=== PATIENT | female | born 1985 | race African-American/Black ===

== ENCOUNTER 2021-06-02 15:11 | Emergency (ER) | payer MEDICAID ==
[2021-06-02] MEDS ORDERED: HYDROcod/ACETAM 5/325 MG TABLET PO STA (15:43)
--- NOTE | 2021-06-02 15:47 | ED Physician Documentation ---
PD HPI LOWER EXT INJURY - Stated complaint Stated Complaint: RIGHT KNEE INJURY - Chief complaint Chief Complaint: Trauma Ext - History obtained from History obtained from: Patient - History of Present Illness PD HPI LOW EXT INJURY LOCATION: Knee Type of injury: Fall Where injury occurred: Other Worsened by: Moving, Palpating - Additional information Additional information: Pt 36 yo F with Rt Knee pain. Reports fall yesterday while at [employer]. Denies Head trauma, LOC or blood thinners. Stats cannot place weight on knee or ambulate without assistance. Denies previous issues with same knee. Review of Systems Ten Systems: 10 systems reviewed and negative Constitutional: denies: Fever Cardiac: denies: Chest pain / pressure Respiratory: denies: Dyspnea GI: denies: Abdominal Pain : denies: Dysuria Musculoskeletal: denies: Neck pain Neurologic: denies: Generalized weakness PD PAST MEDICAL HISTORY - Past Medical History Past Medical History: No - Past Surgical History Past Surgical History: No - Present Medications Home Medications: Ambulatory Orders Medication Instructions Recorded Confirmed HYDROcod/ACETAM 5/325 [[place] 5/325] 1 tab PO Q6H PRN #10 tablet 06/02/21 Ibuprofen [Motrin] 800 mg PO Q8H PRN #30 tablet 06/02/21 - Allergies Allergies/Adverse Reactions: Allergies Allergy/AdvReac Type Severity Reaction Status Date / Time No Known Drug Allergies Allergy Verified 06/02/21 15:18 - Social History Does the pt smoke?: No Smoking Status: Never smoker Does the pt drink ETOH?: No Does the pt have substance abuse?: No PD ED PE NORMAL - General General: Alert and oriented X 3 - HEENT HEENT: Atraumatic - Neck Neck: Supple, no meningeal sign - Respiratory Respiratory: No: No respiratory distress - Female Female : Deferred - Rectal Rectal: Deferred - Neuro Neuro: Alert and oriented X 3, conservation of resources commissioner 2-12 intact PD ED PE EXPANDED - Extremities Extremities: Tenderness, Limited ROM, Swelling, Left knee. No: Laceration, Joint effusion, Ligament laxity Results - Vitals Vitals: Vital Signs - 24 hr 06/02/21 15:18 Temperature 36.7 C Heart Rate 71 Respiratory 18 Rate Blood Pressure 151/79 H O2 Saturation 100 Oxygen O2 Source Room air PD MEDICAL DECISION MAKING - ED course ED course: Pt 36 yo F presenting with right knee pain after fall at the [employer] yesterday. A febrile, hypodermically stable on arrival. No joint laxity, on exam. otherwise neuro-vascular intact. Given [place] in the ED for pain control. Xrays negative for acute fracture however did demonstrate large joint effusion with lipoarthrosis suggestive of occult fracture. Patient provided with knee immobilize/ crutches. Will discharge with medication for pain control. Will discharge with f/u instructions for local area orthopedics. Departure - Departure Disposition: Home, Self Care Clinical Impression: Knee injury Instructions: ED Knee Pain [facility] Follow-Up: [facility]opedic [facility] [Provider Group] Prescriptions: Ibuprofen [Motrin] 800 mg PO Q8H PRN #30 tablet PRN Reason: PAIN &/OR FEVER HYDROcod/ACETAM 5/325 [[place] 5/325] 1 tab PO Q6H PRN #10 tablet PRN Reason: pain Comments: Thank you for allowing us to care for you today at [facility]. Your knee xray did not show a clear or obvious fracture but it did show some signs concerning for occult or hidden fracture. I would like you to keep your knee immobilized and remain non weight bearing on your right leg until you can follow up with orthopedics.
--- NOTE | 2021-06-02 16:06 | XRAY Report ---
PROCEDURE: Knee 4 View RT INDICATIONS: knee injury TECHNIQUE: 4 views of the right knee were acquired. COMPARISON: None. FINDINGS: Bones: No displaced or depressed fractures. No dislocations. There is a mild lateral tilt of the pa tella. No suspicious bony lesions. Soft tissues: There is a moderate to large joint effusion with a lipohemarthrosis. No suspicious soft tissue calcifications. IMPRESSION: 1. No displaced or depressed fracture identified. 2. Moderate to large joint effusion with a lipohemarthrosis suggestive of a nondisplaced fracture. Reviewed by: Hector Albright MD on 06/02/2021 4:05 PM PDT Approved by: Hector Albright MD on 06/02/2021 4:05 PM PDT Station ID: [id number]
[2021-06-02 16:58] VITALS: BP 148/87
== END 2021-06-02 16:50 | disposition home or self-care (01) ==
LOC: MERGE 15:11 → ED 15:11
DX: S89.91XA Unspecified injury of right lower leg, initial encounter (principal); M25.461 Effusion, right knee; W19.XXXA Unspecified fall, initial encounter; Y93.44 Activity, trampolining; Y92.830 Public park as the place of occurrence of the external cause
CPT/HCPCS: 73564; 99283; 99284; A9270

== ENCOUNTER 2022-10-09 15:10 | Outpatient (CLI) | payer MEDICAID ==
[2022-10-09 18:02] LABS: BASOPHILS % (AUTO) 0.2 %; EOSINOPHILS # (AUTO) 0.2 10^3/uL (0.0-0.7); EOSINOPHILS % (AUTO) 1.7 %; HGB - HEMOGLOBIN 10.8 g/dL (12.0-16.0); LYMPHOCYTES # (AUTO) 2.3 10^3/uL (1.5-3.5); LYMPHOCYTES % (AUTO) 21.1 %; MEAN CORPUSCULAR HEMOGLOBIN 28.3 pg (27.0-31.0); MEAN CORPUSCULAR HGB CONC 32.7 g/dL (32.0-36.0); MEAN CORPUSCULAR VOLUME 86.4 fL (81.0-99.0); MEAN PLATELET VOLUME 10.5 fL (7.9-10.8); MONOCYTES # (AUTO) 0.6 10^3/uL (0.0-1.0); MONOCYTES % (AUTO) 5.7 %; NEUTROPHILS # (AUTO) 7.7 10^3/uL (1.5-6.6); NEUTROPHILS % (AUTO) 70.6 %; PLT - PLATELET COUNT 284 10^3/uL (130-450); RED BLOOD COUNT 3.82 10^6/uL (4.20-5.40); RED CELL DISTRIBUTION WIDTH 11.9 % (12.0-15.0)
[2022-10-09 21:20] LABS: ESTIMATED AVERAGE GLUCOSE 105 mg/dL (70-100); HEMOGLOBIN A1c% 5.3 % (4.27-6.07)
[2022-10-11 03:09] LABS: HIV SCREEN 4TH GENERATION Non Reactive (Non Reactive)
[2022-10-11 05:10] LABS: HCV AB Non Reactive (Non Reactive)
[2022-10-11 07:10] LABS: RPR Non Reactive (Non Reactive)
[2022-10-11 08:10] LABS: HBsAG SCREEN Negative (Negative)
[2022-10-11 11:11] LABS: VARICELLA-ZOSTER AB IGG <135 index (Immune >165)
== END 2022-10-09 15:11 | disposition home or self-care (01) ==
LOC: LAB.N 15:10
PROVIDERS: ATTEND Nurse Practitioner Obstetrics & Gynecology
DX: Z36.89 Encounter for other specified antenatal screening (principal)
CPT/HCPCS: 36415; 83036; 85025; 86592; 86762; 86787; 86803; 86850; 86900; 86901; 87340; 87389

== ENCOUNTER 2022-11-14 13:23 | Outpatient (CLI) | payer MEDICAID ==
--- NOTE | 2022-11-14 15:54 | Ultrasound Report ---
PROCEDURE: OB Detailed Eval INDICATIONS: SUPERVISION OF OUTSIDE/PRIOR DATING DATA: Last menstrual period (LMP): 06/24/2022. LMP-based estimated date of delivery (JO): 03/31/2023. First dating scan (date and location): 10/01/2022. Estimated date of delivery (JO) from first dating scan: 04/05/2023. The below data below was generated using the clinical JO of 03/31/2023 TECHNIQUE: Real-time scanning was performed of the fetus, with image documentation and biometric measurements. Endovaginal scanning: None COMPARISON: None. FINDINGS: General: A single living intrauterine gestation is present. Presentation: Breech Placenta: Placental position is fundal, without previa. Amniotic fluid index: 14.3 cm, normal for gestational age. heart rate: 136 beats per minute. Maternal cervical canal: 3.1 cm long; normal length is 2.5 cm or more. biometrics: Biparietal diameter: 4.3 cm, 20 weeks 3 days Head circumference: 18.1 cm, 20 weeks 4 days Abdominal circumference: 16.0 cm, 21 weeks 1 day Femur length: 3.1 cm, 19 weeks 5 days Estimated gestational age from initial scan: 20 weeks 3 days Composite gestational age from present scan: 20 weeks 3 days Estimated weight and percentile: 354 g, 46th percentile Measurement variability in biometric dating: +/- 10 days from 12-20 weeks gestation, +/- 2 weeks from 20-30 weeks gestation, +/- 3 weeks at 30 weeks gestation or later. Anatomic survey: Neuro: Ventricles are normal at less than 10 mm. Cisterna magna is normal at 3-11 mm. Cerebellum i s normal in size and morphology. Nuchal skin fold: Normal at less than 6 mm between 14 and 20 weeks gestational age. Face: Nose and lips, facial profile are normal. Spine: No evidence for spina bifida. Heart: 4-chambered heart is present, with normal ventricular outflow tracts. Diaphragm: Diaphragm is intact. Stomach: Left-sided stomach is present. Kidneys: No hydronephrosis. Normal is less than 5 mm in 2nd trimester, less than 7 mm in 3rd trimester. Cord: 3 vessel cord has orthotopic insertion. Bladder: Normal in size. Extremities: All 4 extremities are visualized. IMPRESSION: Single living intrauterine at 20 weeks 3 days, JO of 03/31/2023. Normal anatomy survey. Reviewed by: Jamar Díaz on 11/14/2022 3:53 PM PDT Approved by: Jamar Díaz on 11/14/2022 3:53 PM PDT Station ID: [id number]
== END 2022-11-14 13:24 | disposition home or self-care (01) ==
LOC: DI 13:23
PROVIDERS: ATTEND Nurse Practitioner Obstetrics & Gynecology
DX: Z34.02 Encounter for supervision of normal first pregnancy, second trimester (principal); Z36.89 Encounter for other specified antenatal screening

== ENCOUNTER 2023-04-11 08:04 | Outpatient (CLI) | payer MEDICAID ==
[2023-04-11 08:26] VITALS: BP 119/77; O2SAT 100
--- NOTE | 2023-04-11 10:43 | Ultrasound Report ---
PROCEDURE: OB Bio w/Non Stress INDICATIONS: post dates OUTSIDE/PRIOR DATING DATA: Last menstrual period (LMP): 06/24/2022. LMP-based estimated date of delivery (JO): 03/31/2023. First dating scan (date and location): 10/01/2022. Estimated date of delivery (JO) from first dating scan: 04/05/2023. The below data below was generated using the ultrasound JO of 04/05/2023 TECHNIQUE: Real-time scanning was performed of the fetus, with image documentation "and biometric me asurements". Biophysical profile was also obtained. Endovaginal scanning: Not performed COMPARISON: 11/14/2022 FINDINGS: General: A single living intrauterine gestation is present. Presentation: Vertex Placenta: Placental position is anterior, without previa. Amniotic fluid index: 12.2 cm, normal for gestational age. heart rate: 144 beats per minute. Biophysical profile: Tone: 2 points. Movement: 2 points. Respiration: 2 points. Largest pocket of fluid: 2 points. Umbilical artery Doppler: Normal appearance. Nuchal cord. IMPRESSION: Single living intrauterine at 40 weeks 6 days, JO of 04/05/2023. BPP 8 of 8. Normal umbilical artery waveform. Nuchal cord. Reviewed by: Jamar Díaz on 04/11/2023 10:42 AM PDT Approved by: Jamar Díaz on 04/11/2023 10:42 AM PDT Station ID: [id number]
--- NOTE | 2023-04-13 08:08 | PROCEDURE REPORT ---
- HPI Diagnosis/Indication for NST: Other Current EDU 03/31/23 Gestation 41 Weeks and 4 Days 6 Para 5 Vital Signs Temperature 36.7 C 04/11/23 08:17 Heart Rate 69 04/11/23 08:17 Respiratory Rate 16 04/11/23 08:17 Blood Pressure 119/77 04/11/23 08:17 O2 Saturation 100 04/11/23 08:17 Temperature 36.7 C 04/11/23 08:17 Heart Rate 69 04/11/23 08:17 Respiratory Rate 16 04/11/23 08:17 Blood Pressure 119/77 04/11/23 08:17 O2 Saturation 100 04/11/23 08:17 If not protocol: Oxygen Flow, liters/minute - NST Procedure NST Procedure Start Date 04/11/23 Start Time 09:06 Stop Time 09:32 Vibroacoustic Stimulation Used No Patient States Movement Yes - Results and Plan Plan: NST reactive. FHR baseline 140s, moderate variability, + accels, no decels Contractions palpate mild, occasionally with soft resting tone
== END 2023-04-11 10:30 | disposition home or self-care (01) ==
LOC: WFO 08:04 → FBP 08:05 → WFO 10:30
PROVIDERS: ATTEND Nurse Practitioner Obstetrics & Gynecology
DX: O48.0 Post-term pregnancy (principal); Z3A.41 41 weeks gestation of pregnancy
CPT/HCPCS: 59025

== ENCOUNTER 2023-04-13 08:13 | Inpatient (IN) | payer MEDICAID ==
[2023-04-13] MEDS ORDERED: TRANEXAMIC ACID IN NACL 1,000 MG/100 ML BAG IV PRN (08:23)
[2023-04-13] MEDS ORDERED: miSOPROStoL 200 MCG TABLET BC PRN (08:23)
[2023-04-13] MEDS ORDERED: OXYTOCIN/SODIUM CHLORIDE 500 ML IV PRN (08:23)
[2023-04-13] MEDS ORDERED: METHYLERGONOVINE 0.2 MG/ML VIAL IM PRN (08:23)
[2023-04-13] MEDS ORDERED: SODIUM CHLORIDE FLUSH 0.9% 10 ML SYRINGE IVP PRN (08:23)
[2023-04-13] MEDS ORDERED: ONDANSETRON 4 MG/2 ML VIAL IVP PRN ×2 (08:23→17:52)
[2023-04-13] MEDS ORDERED: lidocaine 1% 20 ML MDV ID PRN (08:23)
[2023-04-13] MEDS ORDERED: OXYTOCIN 10 UNIT/ML VIAL IM PRN (08:23)
[2023-04-13] MEDS ORDERED: CARBOPROST TROMETHAMINE 250 MCG/ML AMP IM PRN (08:23)
--- NOTE | 2023-04-13 08:29 | HISTORY & PHYSICAL EXAMINATION ---
Admit History - Visit Reason Visit Reason: Other - : 6 Parity: 5 Premature: 0 Ectopic: 0 : 0 Care: positive: [facility] Risk/History: positive: Other Complications This : positive: Other Smoking Status: Never smoker - Mother's Labs Mother's Blood Type: positive: O Mother's RH: positive: Positive GBS: positive: Group B Step Negative Rubella Status: positive: Immune - HPI Diagnosis/Indication for NST: Other - NST Procedure NST Procedure Start Time 09:06 Stop Time 09:32 - Results and Plan Findings/Impression: NST reactive. FHR baseline 150, moderate variability, + accels, no decels Contractions palpate mild occasionally with soft resting tone Meds/Allgy - Home Medications Home Medications: Ambulatory Orders Medication Instructions Recorded Confirmed HYDROcod/ACETAM 5/325 [[employer] 5/325] 1 tab PO Q6H PRN #10 tablet 06/02/21 Ibuprofen [Motrin] 800 mg PO Q8H PRN #30 tablet 06/02/21 - Allergies Allergies/Adverse Reactions: Allergies Allergy/AdvReac Type Severity Reaction Status Date / Time No Known Drug Allergies Allergy Verified 06/06/21 11:25 Review of Systems - Constitutional Constitutional: denies: Fatigue, Fever, Chills - Eyes Eyes: denies: Blurred vision, Spots in vision, Dipolpia - Cardiovascular Cariovascular: denies: Irregular heart rate, Palpitations, Chest pain, Edema - Respiratory Respiratory: denies: Cough, Wheezing, SOB at rest - Gastrointestinal Gastrointestinal: denies: Constipation, Diarrhea, Nausea, Vomiting - Genitourinary Genitourinary: denies: Dysuria - Integumentary Integumentary: denies: Rash, Pruritis - Neurological Neurological: denies: Headache - Psychiatric Psychiatric: denies: Depression, Anxiety - Hematologic/Lymphatic Hematologic/Lymphatic: denies: Anemia Physical - Abdominal Exam Contraction Frequency (min/apart): occasional Contraction Intensity: positive: Mild Uterine Resting Tone: positive: Soft - Monitoring Heart Rate Baseline: 150 Strip Review: positive: Category I - Presentation Presentation: positive: Vertex - Vaginal Exam Membranes: positive: Membranes intact - Speculum Exam Speculum Exam Performed: positive: No Plan for Labor - Plan For Labor I expect patient to be DC'd or transferred within 96 hours.: Yes Plan for Labor: HPI: This 38yo @ 41.6wks gestation by LMP c/w 14wk U/S who presents to [facility] for medical induction of labor secondary to postdates and advanced maternal age. She has been a patient of [facility] for the duration of her which has remained complicated only by her ad vanced maternal age. She has received testing starting at 37wks gestation and it has remained reassuring. She is supported by her Mono today. Dating criteria: LMP 06/24/2022 Initial U/S @ 14wks c/w LMP dating Serial exams - agree undercover cop History: Term NSVB x 5. SAB x0. Last pap 2018-WNL, no hx abnormal. Denies history of gonorrhea, chlamydia, genital herpes, oral herpes or any other STI. Sexual partner does NOT have HSV (oral or genital). Medical Hx: no significant Surgical Hx:skin craft on hand at age 8 Social Hx: Sexual behavior: Monogamous with male partner. Stopped drinking alcohol due to . Denies current use of tobacco, marijuana or other recreational drugs. Reports that she is safe in current relationship. Family Hx: Denies family history of congenital anomalies, Cystic Fibrosis or chromosomal abnormalities. Allergies: NKDA Medications: PNV course: O positive, antibody negative Rubella immune; varicella non-immune HIV neg, RPR non-reactive Hep B Neg, Hep C neg Genetic screening - declined Initial U/S @ 14wks gestation c/w LMP dating. FAS WNL. Placenta is fundal without previa. Size c/w dating (EFW 46%tile). 3VC. COVID-19 vaccine - declined Influenza vaccine- declined Tdap - declined Glucola - declined GBS negative Physical exam: Normocephalic, atraumatic Heart RRR w/o M/G/R Lungs CTAB Abdomen gravid, soft, nontender EFW 3600g FHR baseline 150, moderate variability, + accels, no decels Contractions palpate mild occasionally with soft resting tone SVE 5/80/-2, midposition, soft. Vertex. AROM occurred at 0857 for a moderate amount of light meconium stained amniotic fluid Bilateral LE's no edema Mood is good. Assessment: 38yo @ 41.6wks gestation by LMP c/w 14wk U/S Advanced maternal age Postdates GBS negative FHR Category I Plan: Admit to [facility] for medical induction of labor. Initiate pitocin PRN in 6 hours for augmentation of labor. Intermittent heart rate auscultation. Jacuzzi PRN. Nitrous oxide PRN. Epidural per maternal request. Anticipate .
[2023-04-13 08:50] LABS: BASOPHILS # (AUTO) 0.1 10^3/uL (0.0-0.1); BASOPHILS % (AUTO) 0.4 %; EOSINOPHILS # (AUTO) 0.1 10^3/uL (0.0-0.7); EOSINOPHILS % (AUTO) 1.1 %; HCT - HEMATOCRIT 36.2 % (37.0-47.0); HGB - HEMOGLOBIN 11.9 g/dL (12.0-16.0); LYMPHOCYTES # (AUTO) 1.9 10^3/uL (1.5-3.5); LYMPHOCYTES % (AUTO) 17.3 %; MEAN CORPUSCULAR HEMOGLOBIN 27.9 pg (27.0-31.0); MEAN CORPUSCULAR HGB CONC 32.9 g/dL (32.0-36.0); MEAN CORPUSCULAR VOLUME 84.8 fL (81.0-99.0); MONOCYTES # (AUTO) 0.4 10^3/uL (0.0-1.0); MONOCYTES % (AUTO) 3.2 %; NEUTROPHILS # (AUTO) 8.7 10^3/uL (1.5-6.6); NEUTROPHILS % (AUTO) 77.2 %; PLT - PLATELET COUNT 254 10^3/uL (130-450); RED BLOOD COUNT 4.27 10^6/uL (4.20-5.40); RED CELL DISTRIBUTION WIDTH 13.2 % (12.0-15.0); WHITE BLOOD COUNT 11.2 x10^3/uL (4.8-10.8)
[2023-04-13] MEDS ORDERED: LACTATED RINGERS 1,000 ML IV SCH (09:00)
[2023-04-13] MEDS: SODIUM CHLORIDE FLUSH 0.9% 10 ML SYRINGE IVP SCH ×2 (15:48→18:31)
--- NOTE | 2023-04-13 15:49 | PROVIDER PROGRESS NOTE ---
Labor Progress Note - Uterine Monitoring Uterine Monitoring Mode: positive: External toco Contraction Frequency (min/apart): 7-9 Contraction Intensity: positive: Mild Uterine Resting Tone: positive: Soft - Monitoring Monitor Mode: positive: External ultrasound Heart Rate Baseline: 140 Heart Rate Variability: positive: Moderate (6-25 bmp) Accelerations: positive: Present, 15x15 Decelerations: positive: Variable, Intermittent (<50% x20 min) Strip Review: positive: Category II - Vaginal Exam Dilation (in cm): 5 Effacement (%): 80 Station: -2 Cervical Position: Midposition - Labor Progress Note Labor Progress Note/Additional Text: S: Was pumping and feeling some contractions when she was seated but states when she is up moving around or bouncing on the ball she feels that her contraction go away. Her Mono is supportive at the bedside. O: FHR baseline 140s, moderate variability, + accels, occasional variable deceleration with contractions that pt appreciates as strong Contractions palpate mild every 7-9 minutes with soft resting tone SVE unchanged from last exam (/-2) and vertex A: 38yo @ 41.6wks gestation by LMP c/w 14wk U/S FHR Category II - overall reassuring GBS neg Advanced maternal age P: Initiate pitocin for augmentation of labor with titration per protocol. Continuous monitoring. Jacuzzi PRN. Nitrous oxide PRN. Epidural per maternal request. Anticipate .
[2023-04-13] MEDS ORDERED: OXYTOCIN/SODIUM CHLORIDE 500 ML IV SCH (16:00)
[2023-04-13] MEDS ORDERED: LACTATED RINGERS 1,000 ML IV ONE (16:27)
[2023-04-13] MEDS ORDERED: ROPIVACAINE 0.2% 200 MG/100 ML BAG EP ONE (17:10)
--- NOTE | 2023-04-13 17:48 | PROVIDER PROGRESS NOTE ---
Labor Progress Note - Uterine Monitoring Uterine Monitoring Mode: positive: External toco Contraction Frequency (min/apart): 3-4 Contraction Intensity: positive: Strong Uterine Resting Tone: positive: Soft - Monitoring Monitor Mode: positive: External ultrasound Heart Rate Baseline: 140 Heart Rate Variability: positive: Moderate (6-25 bmp) Accelerations: positive: Absent Decelerations: positive: Variable, Recurrent (>50% x20 min) Strip Review: positive: Category II - Labor Progress Note Labor Progress Note/Additional Text: S: Feeling more comfortable now with her epidural. Her mood is good and her is feeling significantly relieved now that she is comfortable with her epidural. O: FHR baseline 150s, moderate variability, no accels, intermittent variable decelerations - overall reassuring contractions palpate strong every 3-4 minutes with soft resting tone SVE deferred until patient completely comfortable with her epidural. A: 38yo @ 41.6wks gestation Postdates Advanced maternal age FHR Category II GBS negative P: Continuous monitoring. Restart pitocin following next SVE with titration per protocol. Maintain epidural for pain management. Rotate on peanut ball q 30 minutes once comfortable with epidural. Practical Nursing Instructor notified of light meconium stained amniotic fluid. Anticipate .
[2023-04-13] MEDS ORDERED: diphenhydrAMINE INJ 50 MG/ML VIAL IVP PRN (17:52)
[2023-04-13] MEDS ORDERED: NALBUPHINE 10 MG/ML AMP IVP PRN (17:52)
[2023-04-13] MEDS ORDERED: ePHEDrine 50 MG/ML VIAL IVP PRN (17:52)
[2023-04-13] MEDS ORDERED: NALOXONE 0.4 MG/ML VIAL IVP PRN (17:52)
[2023-04-13] MEDS ORDERED: ROPIVACAINE 0.2% 200 MG/100 ML BAG EP PRN (17:52)
[2023-04-13] MEDS ORDERED: METOCLOPRAMIDE 10 MG/2 ML VIAL IVP PRN (17:52)
--- NOTE | 2023-04-13 18:01 | ANESTHESIA ---
Pre-Anesthesia VS, & Labs - Diagnosis labor induction - Procedure labor epidural Vital Signs: Temp Pulse Resp BP Pulse Ox O2 Flow Rate 36.2 C L 69 16 120/77 04/13/23 09:10 04/13/23 09:10 04/13/23 09:10 04/13/23 09:10 Height: 5 ft 3 in Weight (kg): 79.379 kg Body Mass Index: 30.9 BMI Classification: Obese - NPO >8 hours - Is Patient ?: Yes - Lab Results Current Lab Results: Laboratory Tests 04/13/23 08:30: Blood Type O POSITIVE, Antibody Screen NEGATIVE, Crossmatch IS Only See Detail 04/13/23 08:30: WBC 11.2 H, RBC 4.27, Hgb 11.9 L, Hct 36.2 L, MCV 84.8, MCH 27.9, MCHC 32.9, RDW 13.2, Plt Count 254, MPV 10.0, Neut # (Auto) 8.7 H, Lymph # (Auto) 1.9, [place] # (Auto) 0.4, Eos # (Auto) 0.1, Baso # (Auto) 0.1, Absolute Nucleated RBC 0.00, Nucleated RBC % 0.0 Fish Bones: 04/13/23 08:30 Home Medications and Allergies Active Medications Carboprost Tromethamine (Carboprost Tromethamine 250 Mcg/Ml Amp) 250 mcg IM Q15M PRN PRN Reason: Step 4: Hemorrhage protocol Stop: 04/18/23 08:24 Diphenhydramine HCl (Diphenhydramine Inj 50 Mg/Ml Vial) 12.5 - 25 mg IVP Q6HR PRN PRN Reason: ITCHING Ephedrine Sulfate (Ephedrine 50 Mg/Ml Vial) 5 mg IVP Q5M PRN PRN Reason: For SBP<100;give until SBP>100 Oxytocin/Sodium Chloride (Pitocin/Sodium Chloride) 500 mls @ 999 mls/hr IV PRN PRN; Protocol PRN Reason: POST- HEMORR PREVENTION Stop: 04/18/23 08:24 Tranexamic Acid (Tranexamic 1,000 Mg/100ml-Nacl) 1,000 mg in 100 mls @ 600 mls/hr IV .ONCE PRN PRN Reason: EBL >1200mL and within 3hr Stop: 04/18/23 08:24 Lactated Ringer's (Lr) 1,000 mls @ 100 mls/hr IV .Q10H JAMILA Last Admin: 04/13/23 15:48 Dose: 100 mls/hr Oxytocin/Sodium Chloride (Pitocin/Sodium Chloride) 500 mls @ 1 mls/hr IV TITR JAMILA; Protocol Last Admin: 04/13/23 15:54 Dose: 2 milliunit/min, 2 mls/hr Ropivacaine (Naropin 0.2%) 200 mg in 100 mls @ 0 mls/hr EP PRN PRN; Protocol PRN Reason: PAIN Lidocaine HCl (Lidocaine 1% 20 Ml Mdv) 20 ml ID .ONCE PRN PRN Reason: PERINEAL REPAIR Stop: 04/18/23 08:24 Methylergonovine Maleate (Methylergonovine 0.2 Mg/Ml Vial) 0.2 mg IM .ONCE PRN PRN Reason: Step 2: Hemorrhage protocol Stop: 04/18/23 08:24 Metoclopramide HCl (Metoclopramide 10 Mg/2 Ml Vial) 10 mg IVP Q6HR PRN PRN Reason: Nausea / Vomiting Misoprostol (Misoprostol 200 Mcg Tablet) 800 mcg BC .ONCE PRN PRN Reason: Step 3: Hemorrhage protocol Stop: 04/18/23 08:24 Nalbuphine HCl (Nalbuphine 10 Mg/Ml Amp) 2.5 - 5 mg IVP Q4H PRN PRN Reason: ITCHING Naloxone HCl (Naloxone 0.4 Mg/Ml Vial) 0.1 mg IVP Q2M PRN PRN Reason: RR<8 Ondansetron HCl (Ondansetron 4 Mg/2 Ml Vial) 4 mg IVP Q4HR PRN PRN Reason: Nausea / Vomiting Ondansetron HCl (Ondansetron 4 Mg/2 Ml Vial) 4 mg IVP Q6HR PRN PRN Reason: Nausea / Vomiting Oxytocin (Oxytocin 10 Unit/Ml Vial) 10 unit IM .ONCE PRN PRN Reason: Step one: If no IV access Stop: 04/18/23 08:24 Sodium Chloride (Sodium Chloride Flush 0.9% 10 Ml Syringe) 10 ml IVP 0100,0900,1700 [facility] Last Admin: 04/13/23 15:48 Dose: Not Given Sodium Chloride (Sodium Chloride Flush 0.9% 10 Ml Syringe) 10 ml IVP PRN PRN PRN Reason: NEEDED PER PROVIDER ORDERS Allergies/Adverse Reactions: Allergies Allergy/AdvReac Type Severity Reaction Status Date / Time No Known Drug Allergies Allergy Verified 06/06/21 11:25 Anes History & Medical History - Anesthetic History Anesthesia Complications: reports: No previous complications - Medical History Cardiovascular: reports: None Pulmonary: reports: None Smoking Status: Never smoker - Obstetrical History : 6 Parity: 5 Events: reports: Other Complications: reports: Other Exam General: Alert, Oriented x3 Dental: WNL Neck Mobility: Normal Mallampati classification: II Thyromental Distance: greater than 6 cm Respiratory: Lungs clear Cardiovascular: Regular rate Plan Anesthesia Type: Epidural Consent for Procedure(s) Verified and Reviewed: Yes Code Status: Attempt Resuscitation ASA classification: 2-Mild systemic disease Is this case an emergency?: No
[2023-04-13] MEDS ORDERED: SODIUM CHLORIDE 0.9% 1,000 ML ONE (18:07)
[2023-04-13] MEDS ORDERED: WITCH HAZEL/GLYCERIN 1 PAD TOP PRN (19:23)
[2023-04-13] MEDS ORDERED: HYDROCORTISONE 1% CREAM 28 GM TUBE PR PRN (19:23)
--- NOTE | 2023-04-13 19:43 | DELIVERY NOTE ---
Delivery Note - Labor Labor: positive: Augmented by oxytocin, Induced by ARM - Delivery Method Infant Delivery Method: positive: Spontaneous vaginal delivery - Presentation Presentation: positive: Vertex, SARITA - right occiput anterior - Nuchal Cord Nuchal Cord: positive: Present, Reduced - Amniotic Fluid Description Amniotic Fluid Description: positive: Light meconium - Episiotomy Type Episiotomy Type: positive: None - Laceration Laceration: positive: None - Delivery Outcome Delivery Outcome: positive: Livebirth - Spencer Spencer: positive: Placed in direct skin contact with mother, Bulb syringe, Stimulated, Warmed, [place] used Spencer sex: positive: Male - Cord Cord: positive: 3 vessels - Placenta Placenta: positive: Intact, Spontaneous - Estimated Blood Loss Estimated Blood Loss (in cc): 200 - Post Delivery Events Post Delivery Events: positive: No post delivery events - Delivery Comments (Free Text/Narrative) Delivery Comments (Free Text/Narrative): Labor: This 38yo @ 41.6wks gestation who presented on 04/13/2023 for medical induction of labor secondary to postdates and advanced maternal age. Cervix was 5/80/-2 and vertex with intact membranes. AROM occurred at 0857 and was noted to be a moderate amount of light meconium stained amniotic fluid. FHR pattern demonstrated Category II pattern with intermittent periods of category I but overall remained reassuring. Normal labor course. Epidural placed per maternal request. Pt progressed to anterior lip with onset of pushing at 1841 and was c/c/+1 at 1846. . Normal SVB of viable male on 04/13/2023 @ 1851. Nuchal cord x 1 was reduced. The was placed on maternal abdomen, stimulated, dried, and placed skin to skin. 's were 9/9 at 1 and 5 minutes respectively. Pitocin administered via IV for hemostasis. The umbilical cord was allowed to stop pulsating at which time it was doubly clamped by CNM and cut by FOB. 3VC. Cord blood was obtained. Fundal massage and gentle cord traction applied for active management of the third stage. Placenta delivered spontaneously and intact at 1857. Fourth stage: Uterine fundus firm and there is no excessive bleeding. The perineum, vagina, and cervix were inspected and found to be intact. initiated. Family bonding well. Both mother and baby were left in stable condition.
[2023-04-13] MEDS ORDERED: ACETAMINOPHEN 500 MG TABLET PO SCH (20:00)
[2023-04-13] MEDS ORDERED: DOCUSATE SODIUM 100 MG CAPSULE PO SCH (21:00)
[2023-04-13] MEDS: IBUPROFEN 800 MG TABLET PO SCH (21:42)
[2023-04-14] MEDS: IBUPROFEN 800 MG TABLET PO SCH ×3 (03:28→15:14)
--- NOTE | 2023-04-14 14:06 | Discharge Plan ---
Discharge Plan Problem Reviewed?: Yes Disposition: Home, Self Care Condition: Good Diet: Regular Activity Restrictions: No Restrictions Shower Restrictions: No Driving Restrictions: No Weight Bearing: Full Weight Instruction Topics: Vaginal After No Smoking: If you smoke, Please STOP! Call for help. Follow-up with: Luisa Murguia CNM, ARNP [Primary Care Provider] -
--- NOTE | 2023-04-14 14:25 | DISCHARGE SUMMARY ---
Discharge Summary Condition at Discharge: Good Discharge Disposition: 01 Home, Self Care - HOSPITAL COURSE Hospital Course: Date of Admission: 04/13/2023 Date of Discharge: 04/14/2023 Diagnosis on Admission: 1. 38yo @ 41.6wks gestation by LMP c/w 14wk U/S 2. Advanced maternal age 3. Postdates 4. FHR Category I 5. GBS negative Diagnosis on Discharge: 1. 38yo PPD# 1 s/p TSVB viable male infant 2. 3. Normal recovery Brief history: She is a patient [facility] who presents to [facility] on 04/13/2023 @ 41.6wks gestation for medical induction of labor secondary to postdates and advanced maternal age. She was AROMed for a moderate amount of light meconium stained amniotic fluid at 0857. Pitocin was initiated for augmentation of labor for a maximum infusion rate of 4mU/mL. Epidural was placed per maternal request. She progressed to spontaneously deliver a viable male infant on 04/13/2023 at 1851 over intact perineum. Apgars were 9/9 at 1 and 5 minutes respectively. EBL 200mL. She has been doing well in her course. She is ambulating and tolerating a regular diet. She is urinating without difficulty and her lochia is normal. Her pain is well controlled with oral medications. She is without difficulty and she is bonding well with her baby. She will be discharged home today on day #1 with instructions to continue taking her vitamin while and to continue taking ibuprofen and tylenol over the counter as needed for pain management. Physical exam: Normocephalic, atraumatic. Heart RRR w/o M/G/R, lungs CTAB, abdomen soft and nontender with fundus firm at U, perineum intact, light lochia rubra. Bilateral LE's no edema. Mood is good. - ALLERGIES Allergies/Adverse Reactions: Allergies Allergy/AdvReac Type Severity Reaction Status Date / Time No Known Drug Allergies Allergy Verified 06/06/21 11:25 - MEDICATIONS Home Medications: Ambulatory Orders Medication Instructions Recorded Confirmed HYDROcod/ACETAM 5/325 [Lorena 5/325] 1 tab PO Q6H PRN #10 tablet 06/02/21 Ibuprofen [Motrin] 800 mg PO Q8H PRN #30 tablet 10/15/21 - LABS Result Diagrams: 04/13/23 08:30
--- NOTE | 2023-04-14 15:43 | Labor Flowsheet ---
Labor Flowsheet Datetime Report Generated by CPN: 04/14/2023 15:43 Datetime: 04/14/2023 15:13 VITAL SIGNS NBP Sys/Kary/Mean (mmHg): 117 : 73 : 83 Pulse: 76 LaborFlag: Labor Datetime: 04/13/2023 22:05 SpO2 (%): 99 Datetime: 04/13/2023 20:05 Respirations: 16 Datetime: 04/13/2023 19:45 Temperature (C): 36.8 Temperature Route: Oral Datetime: 04/13/2023 18:51 UTERINE ACTIVITY Monitor Mode: External Frequency (min): 2-4 Quality: Strong Duration (sec): 60-90 Pattern: Normal: <= 5 Contractions in 10 Minutes Resting Tone (Palpate): Relaxed ASSESSMENT A Monitor Mode: External US FHR Baseline Rate : 135 FHR Baseline Changes: No Baseline Change Variability: Moderate 6-25 bpm Accelerations: None Decelerations: Early; Late; Variable Category: Category II Datetime: 04/13/2023 18:49 I/O Interventions: Reed Discontinued Patient Care Comments: 700ml Datetime: 04/13/2023 18:46 VAGINAL EXAM Dilatation (cm): 10.0 Datetime: 04/13/2023 18:41 STAGE 2 Pushing: Coached on Pushing Pushing Position: Pushing with Contractions Datetime: 04/13/2023 18:40 Vaginal Exam Comments: ant lip Datetime: 04/13/2023 18:18 Effacement (%): 100 Station: 0 Exam by: Luisa Blade, CNM Datetime: 04/13/2023 17:32 Epidural Procedure Other: Pump Started Datetime: 04/13/2023 17:21 Epidural Procedure: Completed Datetime: 04/13/2023 17:12 Anesthesia Comments: started Datetime: 04/13/2023 17:08 ANESTHESIA Epidural Positioning: Sitting Datetime: 04/13/2023 17:00 Actions for Decelerations: Pitocin Off Datetime: 04/13/2023 16:49 MEDICATIONS Pitocin (milliunits): Discontinued Datetime: 04/13/2023 16:21 Patient Position/Activity: Left Lateral Datetime: 04/13/2023 16:12 PATIENT CARE IV/Blood Work: IV Bolus Given ml @ 500 Datetime: 04/13/2023 16:00 Pitocin Checklist: No More than 1 Late Deceleration Occurred in Past 30 Minutes; No More than 2 Elvia iable Decelerations > 60 Seconds in Duration and decreasing >60 bpm in 30 minutes; No More than 5 Stebbins rine Contractions in 10 Minutes for any 20 Minute Interval; Uterus Palpates Soft between Contractions Datetime: 04/13/2023 14:30 COMMUNICATION Provider Notified (Name): A. Blade CNM Notification Reason: Status Communication Comments: Provider notified of variable to 90's. Planning to come in soon to see pt. Datetime: 04/13/2023 14:12 Membranes Ruptured Date/Time: 04/13/2023 08:57 Datetime: 04/13/2023 11:53 Monitor Interventions for FHR: Ultrasound Adjusted Datetime: 04/13/2023 11:47 Comments: int. tracing d/t maternal movement; tracing MHR @ times Datetime: 04/13/2023 09:00 Contraction Comments: unable to trace on TOCO Datetime: 04/13/2023 08:57 Membrane Status: Ruptured Membranes Rupture Method: Artificial Amniotic Fluid Color: Light Meconium Amniotic Fluid Amount: Moderate Amniotic Fluid Odor: Normal Vaginal Bleeding: None Cervix, Consistency: Soft Cervix, Position: Midposition Datetime: 04/13/2023 08:20 Stage of : Labor
[2023-04-14 15:45] VITALS: BP 117/73; O2SAT 99
== END 2023-04-14 15:30 | disposition home or self-care (01) | DRG 807 ==
LOC: WFO 08:13 → FBP 08:14 → WFO 08:22 → FBP 08:23
PROVIDERS: ADMIT Nurse Practitioner Obstetrics & Gynecology; ATTEND Nurse Practitioner Obstetrics & Gynecology
PROC: 10E0XZZ Delivery of Products of Conception, External Approach (ICD-10-PCS; principal; 2023-04-13)
PROC: 10907ZC Drainage of Amniotic Fluid, Therapeutic from Products of Conception, Via Natural or Artificial Opening (ICD-10-PCS; 2023-04-13)
DX: O48.0 Post-term pregnancy (principal); Z37.0 Single live birth; Z3A.41 41 weeks gestation of pregnancy; O77.0 Labor and delivery complicated by meconium in amniotic fluid; O76 Abnormality in fetal heart rate and rhythm complicating labor and delivery
CPT/HCPCS: 36415; 85025; 86850; 86900; 86901; 86920; A9270; J7120

== ENCOUNTER 2024-10-14 10:05 | Inpatient (IN) ==
[2024-10-14] MEDS: SODIUM CHLORIDE FLUSH 0.9% 10 ML SYRINGE IVP SCH (10:20)
[2024-10-14] MEDS ORDERED: METHYLERGONOVINE 0.2 MG/ML VIAL IM PRN (10:50)
[2024-10-14] MEDS ORDERED: OXYTOCIN 10 UNIT/ML VIAL IM PRN (10:50)
[2024-10-14] MEDS ORDERED: TRANEXAMIC ACID IN NACL 1,000 MG/100 ML BAG IV PRN (10:50)
[2024-10-14] MEDS ORDERED: LABETALOL 20 MG/4 ML SYRINGE IVP PRN ×3 (10:50)
[2024-10-14] MEDS ORDERED: SODIUM CHLORIDE FLUSH 0.9% 10 ML SYRINGE IVP PRN (10:50)
[2024-10-14] MEDS ORDERED: TERBUTALINE 1 MG/ML VIAL SUBQ PRN (10:50)
[2024-10-14] MEDS ORDERED: miSOPROStoL 200 MCG TABLET PR PRN (10:50)
[2024-10-14] MEDS ORDERED: fentaNYL 100 MCG/2 ML VIAL IVP PRN (10:50)
[2024-10-14] MEDS ORDERED: OXYTOCIN/SODIUM CHLORIDE 500 ML IV PRN ×2 (10:50→18:52)
[2024-10-14] MEDS ORDERED: NIFEdipine 10 MG CAPSULE PO PRN (10:50)
[2024-10-14] MEDS ORDERED: hydrALAZINE INJ 20 MG/ML VIAL IVP PRN (10:50)
[2024-10-14] MEDS ORDERED: miSOPROStoL 200 MCG TABLET BC PRN (10:50)
[2024-10-14] MEDS ORDERED: lidocaine 1% 20 ML MDV ID PRN (10:50)
--- NOTE | 2024-10-14 11:03 | ANESTHESIA PROCEDURE NOTE ---
Pre-Anesthesia VS, & Labs Diagnosis Surgical Diagnosis:: Induction of Active Labor Procedure Procedure: Epidural Placement Vitals Vital Signs: Temp 36.8 C 10/14/24 10:45 NPO NPO: Other Is Patient ?: Yes Estimated Due Date:: 10/14/24 Meds/Allgy Home Medications Ambulatory Orders Medication Instructions Recorded Confirmed aspirin 81 mg tablet,delayed 81 mg PO QDAY 06/29/24 10/08/24 release (Adult Aspirin Regimen) vitamins no.159-iron tab PO 06/29/24 10/08/24 fumarate 28 mg-folic acid 800 mcg tablet ( Vitamin) Allergies Allergies Allergy/AdvReac Type Severity Reaction Status Date / Time hydrocodone Allergy Intermediate Emesis Verified 09/18/24 12:37 PFSH Active Problems All Active Problems Supervision of elderly multigravida in third trimester (Acute) screening for streptococcus B (Acute) Pelvic pain in female (Acute) IUGR (intrauterine growth restriction) affecting care of mother (Acute) Elderly multigravida in second trimester (Acute) Medical History Medical History hemorrhage P5 delivery, delayed pp hemorrhage at home Surgical History Surgical History H/O skin graft hand at age 8 Family History Family History Aunt Colon cancer Uncle Diabetes Mother Asthma Other Sickle cell anemia Social History Social History Smoking Status: Never smoker Do you dip or chew tobacco?: No Patient requests smoking cessation consult: No Relationship: Parent Do you feel safe in your home environment?: Yes Suffered physical, verbal, emotional, or financial abuse?: No History of Abuse: No POLST Patient has POLST: No Anesthesia Exam (Expanded) Exam General: Alert and Oriented x3 Mouth Openin Fingerbreadth Neck Mobility: Normal Mallampati classification: II Thyromental Distance: 4-6 cm Respiratory: No respiratory distress Cardiovascular: Regular rate Neurological: Normal speech Mental/Cognitive Status: Alert/Oriented X3 and Normal for patient Cognitive Status: Within normal limits Plan Problem List (1) hemorrhage: Qualifiers: hemorrhage type: secondary hemorrhage Qualified Code(s): O72.2 - Delayed and secondary hemorrhage (2) Supervision of elderly multigravida in third trimester: Plan Anesthesia Type: Epidural Consent for Procedure(s) Verified and Reviewed: Yes Code Status: Attempt Resuscitation ASA Classification ASA classification: 2-Mild systemic disease Is this case an emergency?: No
[2024-10-14 11:05] LABS: BASOPHILS # (AUTO) 0.1 10^3/uL (0.0-0.1); BASOPHILS % (AUTO) 0.5 %; EOSINOPHILS # (AUTO) 0.1 10^3/uL (0.0-0.7); EOSINOPHILS % (AUTO) 1.1 %; HGB - HEMOGLOBIN 11.1 g/dL (12.0-16.0); LYMPHOCYTES % (AUTO) 17.6 %; MEAN CORPUSCULAR HEMOGLOBIN 28.4 pg (27.0-31.0); MEAN CORPUSCULAR HGB CONC 32.6 g/dL (32.0-36.0); MEAN PLATELET VOLUME 10.1 fL (7.9-10.8); MONOCYTES # (AUTO) 0.7 10^3/uL (0.0-1.0); MONOCYTES % (AUTO) 6.5 %; NEUTROPHILS # (AUTO) 8.3 10^3/uL (1.5-6.6); NEUTROPHILS % (AUTO) 73.1 %; PLT - PLATELET COUNT 249 10^3/uL (130-450); RED BLOOD COUNT 3.91 10^6/uL (4.20-5.40); RED CELL DISTRIBUTION WIDTH 12.9 % (12.0-15.0); WHITE BLOOD COUNT 11.4 x10^3/uL (4.8-10.8)
--- NOTE | 2024-10-14 11:07 | HISTORY & PHYSICAL EXAMINATION ---
Admit History Smoking Status: Never smoker HPI Current : Vital Signs Temperature 98.2 F 10/14/24 10:45 Meds/Allgy Home Medications Ambulatory Orders Medication Instructions Recorded Confirmed aspirin 81 mg tablet,delayed 81 mg PO QDAY 06/29/24 10/08/24 release (Adult Aspirin Regimen) vitamins no.159-iron tab PO 06/29/24 10/08/24 fumarate 28 mg-folic acid 800 mcg tablet ( Vitamin) Allergies Allergies Allergy/AdvReac Type Severity Reaction Status Date / Time hydrocodone Allergy Intermediate Emesis Verified 09/18/24 12:37 PFSH Active Problems All Active Problems (Updated 09/18/24 @ 12:41 by Manisha Brown, NETTIE) Supervision of elderly multigravida in third trimester (Acute) screening for streptococcus B (Acute) Pelvic pain in female (Acute) IUGR (intrauterine growth restriction) affecting care of mother (Acute) Elderly multigravida in second trimester (Acute) Medical History Medical History (Updated 09/18/24 @ 12:41 by Manisha Brown RN) hemorrhage P5 delivery, delayed pp hemorrhage at home Surgical History Surgical History (Updated 06/29/24 @ 08:06 by Mi Moreno MA) H/O skin graft hand at age 8 Family History Family History (Updated 06/29/24 @ 08:08 by Mi Moreno MA) Aunt Colon cancer Uncle Diabetes Mother Asthma Other Sickle cell anemia Social History Social History Smoking Status: Never smoker Do you dip or chew tobacco?: No Patient requests smoking cessation consult: No Relationship: Parent Do you feel safe in your home environment?: Yes Suffered physical, verbal, emotional, or financial abuse?: No History of Abuse: No Physical Abdominal Exam Vital Signs: Temp 98.2 F 10/14/24 10:45 Plan for Labor Plan For Labor I expect patient to be DC'd or transferred within 96 hours.: Yes Plan for Labor: HPI: Liss is a 39yo @ 41.0wks gestation by 13wk U/S who presents to [facility] for medical induction of labor secondary to advanced maternal age and postdates . Upon arrival her cervix is 5/60/-2 and vertex with intact membranes. FHR demonstrates Category I pattern. She reports intermittent contractions but nothing overly uncomfortable or consistent. She is supported by her today. She has been a patient of [facility] for the duration of her which was complicated by 9%tile EFW on 20wk however she was referred to [facility] and the repeat ultrasound performed there revealed EFW 35%tile. She had a follow up growth ultrasound in the 3rd trimester measured EFW 80%tile. In addition, she has a hx of delayed hemorrhage following her 5th delivery and she will be type and crossed x 2 units and accepts active management of the third stage of labor. Dating criteria: LMP: 12/27/2023 JO by LMP: 10/02/2024 Initial U/S: @ 13.1wks c/w LMP dating -Dating adjusted by [facility] to JO 10/07/2024 FINAL JO: 10/07/2024 Medical Hx: delayed pp hemorrhage Surgical Hx: Skin graft on hand at age 8 Social Hx: Never smoker. No ETOH or IVDA. 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 Reports she is safe at home. Family Hx: Diabetes - Uncle; Asthma- Mother; Sickle cell anemia; Colon cancer - Aunt ALLERGIES: Hydrocodone RX: 81mg Aspirin, PNV PROBLEMS: -FAS revealed EFW 9%tile. [facility] 06/15 with adjusted JO 10/07 resulting EFW 35%tile. 3rd trimester growth ultrasound WNL (EFW 80%tile) -AMA: LDASA initiated @ 12wks 3rd trimester growth U/S - 80%tile, CARLINE 16.8cm NSTs initiated at 36wks gestation Recommended IOL at 39wks, pt declined - will initiate twice weekly NSTs with once weekly AFIs at 39wks until delivery. Pt agrees to 41wk IOL -Hx of LGA baby and delayed pp hemorrhage Type and cross 2 units on admission Pre- Weight: 170 BMI: 30.1 course: Blood type O+ Rh + Antibody negative CBC:H/H 10.9/33.4 plt 278 RUB:IMMUNE VZV:NON IMMUNE HBsAg: NR HepC: NR RPR/AB-EIA; NR HIV:NR PAP: 2018 WNL, denies hx abnormal. Requests pap . GC/CT:04/01/2024- NEGATIVE HSV: denies in self and partner Genetic testing: declined Covid: declined Flu: declined FAS: concern for IUGR (EFW 9%tile) Placenta: posterior Cord: 3VC CARLINE: 10.7cm EFW: 306.8 (9%tile) 06/15 growth ultrasound with MFM: EFW 35%tile 50gm OGCT: A1C 4.8 TDAP: Declines Breast Pump: has Antibody screen: 3rd trimester HCt 32.6 HGB 10.9 PLT 207 3rd trimester RPR NR RSV Vaccine Declines GBS: collected 09/18 Delivery plan: Desires spontaneous labor onset. Desires epidural for pain management. Accepts saline lock and accepts active management of the third stage. Strongly declines all baby medications and they DO NOT want to be pushed into accepting medications. MOD: Anticipate Physical exam: Normocephalic, atraumatic Heart RRR w/o M/G/R Lungs CTAB Abdomen gravid, soft, nonteder FHR baseline 140s, modearte variability, + accels, no decels Contractions palpate mild occasionally with soft resting tone SVE 5/60/-2 and vertex with intact membranes -Attempted AROM however due to patient discomfort and station attempt was unsuccessful Bilateral LE's no edema Mood is good Assessment: 39yo @ 41.0wks gestation Postdates Advanced maternal age FHR Category I GBS negative Hx hemorrhage Plan: Admit to [facility] for medical induction of labor secondary to postdates and advanced maternal age. Continuous monitoring. Initiate pitocin for induction of labor with titration per protocol. Type and cross x 2 units. Jacuzzi PRN. Nitrous oxide PRN. Epidural per maternal request. -Anesthesia notified to present to discuss and consent patient for epidural placement secondary to her hx of precipitous delivery and desire for early epidural placement. Anticipate .
[2024-10-14] MEDS: LACTATED RINGERS 1,000 ML IV PRN (11:18)
[2024-10-14] MEDS: OXYTOCIN/SODIUM CHLORIDE 500 ML IV SCH (11:18)
[2024-10-14] MEDS ORDERED: ROPIVACAINE 0.2% 200 MG/100 ML BAG EP ONE (13:32)
[2024-10-14] MEDS ORDERED: LIDOCAINE 2%-EPI 1:100000 20 ML MDV ONE (13:32)
[2024-10-14] MEDS ORDERED: ePHEDrine 50 MG/ML VIAL IVP ONE (15:17)
[2024-10-14] MEDS: ePHEDrine 50 MG/ML VIAL IVP PRN (15:20)
[2024-10-14] MEDS ORDERED: ONDANSETRON 4 MG/2 ML VIAL ONE (15:24)
[2024-10-14] MEDS ORDERED: NALOXONE 0.4 MG/ML VIAL IVP PRN (17:00)
[2024-10-14] MEDS ORDERED: ONDANSETRON 4 MG/2 ML VIAL IVP PRN (17:00)
[2024-10-14] MEDS ORDERED: ROPIVACAINE 0.2% 200 MG/100 ML BAG EP PRN (17:00)
--- NOTE | 2024-10-14 17:03 | PHARMACY PROGRESS NOTE ---
Best Possible Medication History Admit Date and Time: 10/14/24 1050 Home Medications Medication Instructions Recorded Confirmed Type aspirin 81 mg tablet,delayed 81 mg PO QDAY 06/29/24 10/14/24 History release (Adult Aspirin Regimen) vitamins no.159-iron 1 tab PO DAILY 06/29/24 10/14/24 History fumarate 28 mg-folic acid 800 mcg tablet ( Vitamin) Processed by: Nursing Medications reviewed in ED?: No Medication History completed: Yes Patient Interview: Pt unable to participate Secondary Source(s): Insurance records [facility] Statement: As the person ultimately responsible for medication therapy, providers are able to order a medication from an existing home medication list in [facility] via the "Reconcile Routine" prior to Confirmation of that medication by legal support manager. Such practice is discouraged except when the physician, in their clinical judgment, deems that a medical need exists for a medication without regard to previous use.
--- NOTE | 2024-10-14 18:51 | DELIVERY NOTE ---
Delivery Note Delivery Outcome Delivery Date: 10/14/24 Delivery Time: 17:50 Delivery Comments (Free Text/Narrative) Delivery Comments (Free Text/Narrative): Labor: This 39yo @ 41.0wks gestation by 13wk U/S presented to [facility] for medical induction of labor secondary to postdates and advanced maternal age. Cervix was 5/90/-2 and vertex. Pitocin was initiated for induction of labor with a maximum infusion rate of 6mU/mL. FHR demonstrated Category I pattern throughout labor. Normal labor course. Epidural placed per maternal request. AROM occurred @ 1459 and was noted to be a large amount of clear fluid. She progressed to c/c/0 at 1727. : Normal SVB of viable female infant on 10/14/2024 @ 1750. No nucal cord. Compound right arm noted. The was placed on maternal abdomen, stimulated, dried, and placed skin to skin. 's were 8/9 at 1 and 5 min respectively. Pitocin administered via IV for hemostasis. The umbilical cord was allowed to stop pulsating at which time it was doubly clamped by CNM and cut by FOB. Cord blood was obtained. 3VC. Fundal massage and gentle cord traction applied for active management of the third stage. Placenta delivered spontaneously and intact at 1800. EBL 150mL. Fourth stage: Uterine fundus firm and there is no excessive bleeding. The perineum, vagina, and cervix were inspected and found to be intact. initiated. Both mother and baby were left in stable condition.
[2024-10-14] MEDS ORDERED: WITCH HAZEL/GLYCERIN 1 PAD TOP PRN (18:52)
[2024-10-14] MEDS ORDERED: SIMETHICONE CHEW 80 MG TABLET PO PRN (18:52)
[2024-10-14] MEDS ORDERED: ACETAMINOPHEN 500 MG TABLET PO PRN (18:52)
[2024-10-14] MEDS ORDERED: HYDROCORTISONE 1% CREAM 28 GM TUBE TOP PRN (18:52)
[2024-10-14] MEDS: IBUPROFEN 800 MG TABLET PO PRN (19:33)
[2024-10-14] MEDS: DOCUSATE SODIUM 100 MG CAPSULE PO SCH (21:44)
[2024-10-15] MEDS: oxyCODONE 5 MG TABLET PO ONE (03:52)
--- NOTE | 2024-10-15 08:59 | Discharge Summary ---
Discharge Summary HOSPITAL COURSE Hospital Course: Date of Admission: 10/15/2024 Date of Discharge: 10/15/2024 Diagnosis on Admission: 1. 39yo @ 41.0wks gestation 2. Postdates 3. Advanced maternal age 4. FHR Category I 5. GBS negative 6. Hx hemorrhage Diagnosis on Discharge: 1. 39yo PPD#1 s/p TSVD viable female infant 2. 3. Normal recovery Brief History: She is a patient of [facility] who presented on 10/14/2024 @ 41.0wks gestation for medical induciton of labor secondary to advanced maternal age and postdates . Cervix was 5/60/-2 and vertex with intact membranes. Pitocin inidiated for induction of labor. Epidural was placed per maternal request. AROM occurred 1459 and was noted to be a moderate amount of clear fluid. She spontaneously progressed to deliver a viable female on 10/14/2024 @ 1750. Perineum was intact. Apgars were 8/9 at 1 and 5 minutes respectively. EBL 150 mL. She has been doing well in her course. She is ambulating and tolerating a regular diet. She is urinating without difficulty and her lochia is normal. Her pain is well controlled with oral medications. She will be discharged home today on day #1 with instructions to continue taking her vitamin while and to continue taking Ibuprofen and Tylenol over the counter as needed for pain management. She intends to follow up with myself at [facility] in 1 week for routine visit or sooner if needed. She has been given precautions to call if she has any worsening fevers, chills, abdominal pain, increased vaginal bleeding or foul smelling vaginal lochia. Physical Exam: Normocephalic, atraumatic. Heart RRR w/o M/G/R, lungs CTAB, abdomen soft and nontender with fundus firm at U, perineum intact, light lochia rubra, bilateral LE's no edema. Mood is good. ALLERGIES Allergies Allergy/AdvReac Type Severity Reaction Status Date / Time hydrocodone Allergy Intermediate Emesis Verified 10/14/24 11:46 MEDICATIONS Ambulatory Orders Medication Instructions Recorded Confirmed vitamins no.159-iron 1 tab PO DAILY 06/29/24 10/14/24 fumarate 28 mg-folic acid 800 mcg tablet ( Vitamin) LABS 10/14/24 10:15 Discharge Plan Discharge Patient Disposition: 01 Home, Self Care Prescriptions: Continued Vitamin 28 mg iron- 800 mcg tablet 1 tab PO DAILY Discontinued aspirin [Adult Aspirin Regimen] 81 mg tablet,delayed release (DR/EC) 81 mg PO QDAY Print Language: Chinese Patient Instructions: Vaginal After, Self Care
[2024-10-15 12:45] VITALS: BP 127/83; TEMP 99.3; O2SAT 100
--- NOTE | 2024-10-15 15:03 | Labor Flowsheet ---
Labor Flowsheet Datetime Report Generated by CPN: 10/15/2024 15:03 Datetime: 10/15/2024 12:41 VITAL SIGNS NBP Sys/Kary/Mean (mmHg): 127 : 83 : 91 Pulse: 76 Datetime: 10/14/2024 18:04 SpO2 (%): 100 Datetime: 10/14/2024 18:00 Stage 2 Comments: placenta Datetime: 10/14/2024 17:59 Stage of : Recovery Datetime: 10/14/2024 17:51 Medication Comments: pp pit started Datetime: 10/14/2024 17:45 UTERINE ACTIVITY Monitor Mode: Palpation Frequency (min): 2-3 Quality: Strong Pattern: Normal: <= 5 Contractions in 10 Minutes Resting Tone (Palpate): Relaxed Contraction Comments: pt pushing ASSESSMENT A Monitor Mode: Telemetry FHR Baseline Rate : 160 Variability: Moderate 6-25 bpm Accelerations: None Decelerations: None Category: Category I Datetime: 10/14/2024 17:44 LaborFlag: Labor Datetime: 10/14/2024 17:30 Monitor Interventions for UA: [place] Adjusted Duration (sec): 120-140 Pitocin Checklist: At Least 1 Acceleration of 15 bpm x 15 Seconds in 30 Minutes or Adequate Variabi lity; No More than 1 Late Deceleration Occurred in Past 30 Minutes; No More than 2 Variable Decelerat ions > 60 Seconds in Duration and decreasing >60 bpm in 30 minutes; No More than 5 Uterine Contractio ns in 10 Minutes for any 20 Minute Interval; Uterus Palpates Soft between Contractions Datetime: 10/14/2024 17:28 STAGE 2 Pushing: Coached on Pushing Datetime: 10/14/2024 17:27 VAGINAL EXAM Dilatation (cm): 10.0 Effacement (%): 100 Station: 0 Exam by: EVY Godoy Pushing Position: Pushing Lithotomy Datetime: 10/14/2024 17:08 Patient Position/Activity: Right Lateral Patient Care Comments: with pillow support. Pt states she feels pain on right abdomen. Pt encourage d to hit button for epidural. Datetime: 10/14/2024 16:41 Communication Comments: Pt states she may be feeling a change in pressure. A.Blade, CNM at bedside Datetime: 10/14/2024 15:59 Temperature (C): 36.8 Temperature Route: Oral PAIN Pain Scale: 0 Pain Presence: None/Denies Datetime: 10/14/2024 15:30 Comments: broken FHT. Pt with emesis Datetime: 10/14/2024 15:27 MEDICATIONS Pitocin (milliunits): Decreased to @ 3 Datetime: 10/14/2024 15:24 COMMUNICATION Communication: Provider at Bedside Datetime: 10/14/2024 14:59 Membrane Status: Ruptured Membranes Rupture Method: Artificial Amniotic Fluid Color: Clear Amniotic Fluid Amount: Large Datetime: 10/14/2024 14:14 Respirations: 14 Datetime: 10/14/2024 13:50 Epidural Procedure: Loading Dose Datetime: 10/14/2024 13:34 Anesthesia Comments: E.Luke, STOPPER MAKER HELPER at bedside Datetime: 10/14/2024 13:31 PROCEDURE TIME OUT Procedure Verify: Correct Patient Identity; Correct Side and Site are Marked; Accurate Procedure Co nsent Form; Agreement on Procedure to be Done; Correct Patient Position; Relevant Images and Results are Properly Labeled and Displayed; Addressed Need to Administer Antibiotics or Fluids for Irrigation ; Safety Precautions Based on Patient History or Medication Use ANESTHESIA Anesthesia Plans: Epidural Epidural Positioning: Sitting Datetime: 10/14/2024 13:24 Pain Type: Contraction Pain Location: Abdomen Datetime: 10/14/2024 13:14 Pain Assessment Comments: pt requesting epidural prior to pitocin increase. A.Chana, STOPPER MAKER HELPER notified Datetime: 10/14/2024 12:06 I/O Interventions: Up to BR Datetime: 10/14/2024 11:44 Membranes Ruptured Date/Time: 10/14/2024 15:00 Amniotic Fluid Odor: None Datetime: 10/14/2024 11:22 Pain Relief Measures: Comfort Measures Datetime: 10/14/2024 10:56 Membrane Comments: A.Blade, CNM attempts to AROM. unsuccessful AROM. A.Blade, CNM gives order to star t pitocin and reassess. Pt agreeable. Datetime: 10/14/2024 10:20 PATIENT CARE IV/Blood Work: IV Started; Labs Drawn with IV Start; IV Saline Locked
== END 2024-10-15 14:15 | disposition home or self-care (01) | DRG 807 ==
LOC: WFO 10:05 → FBP 10:10
PROVIDERS: ADMIT Nurse Practitioner Obstetrics & Gynecology; ATTEND Nurse Practitioner Obstetrics & Gynecology
DX: O48.0 Post-term pregnancy; Z3A.41 41 weeks gestation of pregnancy; Z37.0 Single live birth; O32.6XX0 Maternal care for compound presentation, not applicable or unspecified; Z87.59 Personal history of other complications of pregnancy, childbirth and the puerperium